=== PATIENT | female | born 1995 | race Caucasian/White ===

== ENCOUNTER → 2018-05-20 09:45 | Outpatient (CLI) | payer OTHER, SELFPAY ==
[2018-05-27 19:31] LABS: HPV Reflexed? NOT INDICATED
== END ==
PROVIDERS: Referring Provider Family Medicine; Visit Provider Family Medicine
DX: Z12.4 Encounter for screening for malignant neoplasm of cervix (principal)
CPT/HCPCS: 88175; G0145